=== PATIENT | female | born 1935 ===

== ENCOUNTER 2019-05-01 06:42 | Emergency (ER) | payer OTHER ==
[~2019-05-01] VITALS: Ht 149.9 cm; Wt 39.9 kg
[2019-05-01] MEDS ORDERED: GLIMEPIRIDE4 MG (07:23)
[2019-05-01] MEDS ORDERED: VITAMIN D32000 UNIT (07:23)
[2019-05-01] MEDS ORDERED: ARICEPT10 MG (07:24)
[2019-05-01] MEDS ORDERED: ZOCOR20 MG (07:25)
== END 2019-05-01 13:11 | disposition home or self-care (01) ==
LOC: ER 06:42
DX: R42 Dizziness and giddiness (principal); E86.0 Dehydration; R53.1 Weakness